=== PATIENT | female | born 1990 | race American Indian/Alaskan Native ===

== ENCOUNTER 2019-05-04 20:31 | Inpatient (IN) | payer OTHER ==
[2019-05-04] MEDS ORDERED: fentaNYL 100 MCG/2 ML INJ IV PRN (20:38)
[2019-05-04] MEDS ORDERED: PROMETHAZINE 25 MG TAB PO PRN (20:38)
[2019-05-04] MEDS ORDERED: TERBUTALINE 1 MG/1 ML INJ SUB-Q PRN (20:38)
[2019-05-04] MEDS ORDERED: NALOXONE 0.4 MG/1 ML INJ IV PRN (20:38)
[2019-05-04] MEDS ORDERED: TERBUTALINE 1 MG/1 ML INJ IVP PRN (20:38)
[2019-05-04] MEDS ORDERED: MINERAL OIL 30 ML ORAL LIQD PO PRN (20:38)
[2019-05-04] MEDS ORDERED: BUTORPHANOL 2 MG/1 ML INJ IV PRN (20:38)
[2019-05-04] MEDS ORDERED: AMPICILLIN/NS 2 GM/100 ML 2 GM/100 ML BAG IV ONE (20:38)
[2019-05-04] MEDS ORDERED: ONDANSETRON 4 MG/2 ML INJ IV PRN (20:38)
[2019-05-04] MEDS ORDERED: LIDOCAINE (2%) 20 MG/1 ML VIAL 20 ML MDV INFILTRATI ONE ×2 (20:38→22:55)
[2019-05-04] MEDS ORDERED: OXYTOCIN DRIP 30 UNITS/500 ML BAG IV SCH (21:00)
[2019-05-04] MEDS ORDERED: LACTATED RINGERS 1,000 ML IV SCH (21:00)
[2019-05-04 21:14] LABS: Hematocrit 34.3 % (30.3-42.9); Hemoglobin 11.1 gm/dl (10.1-14.3); Mean Corpuscular HGB Conc 32 % (30-34); Mean Corpuscular Volume 85 fl (79-97); Platelet Count 274 K/mm3 (140-440); Red Blood Count 4.03 M/mm3 (3.65-5.03)
--- NOTE | 2019-05-04 22:23 | History and Physical Report ---
History of Present Illness Date of examination: 05/04/19 Date of admission: 05/04/19 Chief complaint: Contractions History of present illness: Pt is a 28 yo at 37.0 weeks EGA who presents with regular uterine contractions. She denies current leaking fluid or vaginal bleeding. She has received care with [facility] since 15 weeks EGA, with gap in care from 23 and 29.5 weeks and from 31.5 to 37 weeks. Her course has been complicated by an elevated GCT without completion of 3 hr GTT. Her GBS status is unknown. Past History Past Medical History: other (Glucose intolerance) Past Surgical History: no surgical history Family/Genetic History: none Social history: no significant social history - Obstetrical History Expected Date of Delivery: 05/25/19 Actual Gestation: 37 Week(s) 0 Day(s) : 2 Para: 0 Hx # Term Pregnancies: 0 Spontaneous Abortions: 0 Induced : 1 Number of Living Children: 0 Medications and Allergies Allergies Allergy/AdvReac Type Severity Reaction Status Date / Time No Known Drug Allergies Allergy Unknown Verified 05/04/19 21:00 Home Medications Medication Instructions Recorded Confirmed Last Taken Type Vitamin 1 tab PO DAILY 05/04/19 05/04/19 05/04/19 08:00 History Active Meds: Active Medications Butorphanol Tartrate (Stadol) 2 mg IV Q2H PRN PRN Reason: Pain , Severe (7-10) Last Admin: 05/04/19 21:13 Dose: 2 mg Documented by: Ephedrine Sulfate (Ephedrine Sulfate) 10 mg IV Q2M PRN PRN Reason: Hypotension Fentanyl (Sublimaze) 100 mcg IV Q2H PRN PRN Reason: Labor Pain Oxytocin/Sodium Chloride (Pitocin/Ns 20 Unit/1000ml Drip) 20 units in 1,000 mls @ 125 mls/hr IV DIRECT CHAZ Oxytocin/Sodium Chloride (Pitocin/Ns 30 Unit/500ml) 30 units in 500 mls @ 1 mls/hr IV TITR CHAZ; Protocol Lactated Ringer's (Lactated Ringers) 1,000 mls @ 125 mls/hr IV DIRECT CHAZ Last Admin: 05/04/19 21:27 Dose: 125 mls/hr Documented by: Ampicillin Sodium (Ampicillin/Ns 1 Gm/50 Ml) 1 gm in 50 mls @ 100 mls/hr IV Q4HR CHAZ; Protocol Mineral Oil (Mineral Oil) 30 ml PO QHS PRN PRN Reason: Constipation Naloxone HCl (Naloxone) 0.1 mg IV Q2MIN PRN PRN Reason: Res Rate </= 8 or 02 SAT < 92% Ondansetron HCl (Zofran) 4 mg IV Q8H PRN PRN Reason: Nausea And Vomiting Promethazine HCl (Phenergan) 25 mg PO Q6H PRN PRN Reason: Nausea And Vomiting Terbutaline Sulfate (Brethine) 0.25 mg SUB-Q ONCE PRN PRN Reason: Hyperstimulation/Hypertonicity Terbutaline Sulfate (Brethine) 0.25 mg IVP ONCE PRN PRN Reason: Hyperstimulation/Hypertonicity Review of Systems All systems: negative Genitourinary: contractions, no vaginal bleeding, no vaginal discharge, no leakage of fluid - Vital Signs Vital signs: Vital Signs Resp 18 05/04/19 21:13 Temp Pulse Resp BP Pulse Ox 75 18 111/59 05/04/19 21:36 05/04/19 21:36 05/04/19 21:36 - Physical Exam Abdomen: Positive: soft Genitourinary (Female): Positive: normal external genitalia, normal perenium Vagina: Positive: normal moisture Uterus: Positive: enlarged (gravid) Extremities: Positive: normal - Obstetrical FHR: category 2 (variable decelerations) Uterine Contraction Monitor Mode: External Cervical Dilatation: 7 Cervical Effacement Percentage: 80 station: -3 Uterine Contraction Frequency (min): 2 Uterine Contraction Duration: 50 Uterine Contraction Pattern: Regular Results Result Diagrams: 05/04/19 20:50 Abnormal lab results 05/04/19 Range/Units 20:50 WBC 17.0 H (4.5-11.0) K/mm3 All other labs normal. Assessment and Plan 28 yo at 37.0 weeks EGA Active labor GBS unknown Admit to L&D for labor Initiate Ampicillin prophylaxis Augment as needed Pain relief as requested Anticipate
[2019-05-04] MEDS ORDERED: ePHEDrine SULFATE 50 MG/1 ML INJ IV PRN (22:39)
[2019-05-04] MEDS ORDERED: NALOXONE 2 MG/2 ML INJ IV PRN (22:39)
--- NOTE | 2019-05-04 22:39 | Anesthesia Consultation ---
Anesthesia Consult and Med Hx Date of service: 05/04/19 - Airway Anesthetic Teeth Evaluation: Good ROM Head & Neck: Adequate Mental/Hyoid Distance: Adequate Mallampati Class: Class II Intubation Access Assessment: Good - Pulmonary Exam CTA: Yes - Cardiac Exam Cardiac Exam: RRR - Pre-Operative Health Status ASA Pre-Surgery Classification: ASA2, Emergency Proposed Anesthetic Plan: Epidural - Pulmonary Hx Asthma: No COPD: No Hx Pneumonia: No - Cardiovascular System Hx Hypertension: No - Central Nervous System Hx Seizures: No Hx Psychiatric Problems: No - Endocrine Hx Renal Disease: No Hx End Stage Renal Disease: No Hx Hypothyroidism: No Hx Hyperthyroidism: No - Hematic Hx Anemia: No Hx Sickle Cell Disease: No - Other Systems Hx Alcohol Use: No
[2019-05-04] MEDS: ePHEDrine SULFATE 50 MG/1 ML INJ IV PRN ×2 (22:50→23:30)
[2019-05-04] MEDS ORDERED: OXYTOCIN 10 UNIT/1 ML INJ ONE (22:55)
[2019-05-04] MEDS ORDERED: fentaNYL-BUPIV 2 MCG/ML-0.125% 200 MCG/100 ML BAG EPIDURAL SCH (23:00)
[2019-05-05] MEDS ORDERED: PROMETHAZINE 25 MG RECT SUPP PR PRN (00:27)
[2019-05-05] MEDS ORDERED: PROMETHAZINE 25 MG TAB PO PRN (00:27)
[2019-05-05] MEDS ORDERED: diphenhydrAMINE 25 MG CAP PO PRN (00:27)
[2019-05-05] MEDS ORDERED: WITCH HAZEL/ GLYCERIN PAD TP PRN (00:27)
[2019-05-05] MEDS ORDERED: LANOLIN/ZINC/DIMETHICONE (LANSINOH) 7 GM TP PRN (00:27)
[2019-05-05] MEDS ORDERED: MAGNESIUM HYDROXIDE (MOM) ORAL LIQD UDC PO PRN (00:27)
[2019-05-05] MEDS ORDERED: ACETAMINOPHEN 325 MG TAB PO PRN (00:27)
[2019-05-05] MEDS ORDERED: ONDANSETRON 4 MG/2 ML INJ IV PRN (00:27)
[2019-05-05] MEDS ORDERED: AMPICILLIN/NS 1 GM/50 ML 1 GM/50 ML BAG IV SCH (00:40)
--- NOTE | 2019-05-05 00:46 | Procedure Note ---
OB Delivery Note - Delivery Date of Delivery: 05/05/19 Surgeon: OSCAR ARCHULETA ([facility]) Estimated blood loss: 200cc - Vaginal Delivery presentation: vertex Delivery position: OA Intrapartum events: mult.variable deceleratio Delivery induction: none Delivery monitor: external FHT, external uterine Route of delivery: Delivery placenta: spontaneous Delivery cord: 3 umbilical vessels Episiotomy: none Delivery laceration: vaginal side wall (right, hemostatic) Anesthesia: epidural Delivery comments: Pt noted to be c/c/+2. Excellent maternal effort progressed to of viable female infant. Head delivered OA, restituted LOT. Shoulders followed easily. Infant to maternal abdomen, bulb suctioned and stimulated, gasping, cord clamped and cut, to warmer, evaluated by peds. [place] placenta followed spontaneously and intact. Vagina and perineum explored. Right labial and periurethral abrasion noted, hemostatic. Fundus firm. Pitocin infusing. - A Infant Gender: Female
[2019-05-05] MEDS: OXYTOCIN 20 UNIT/1000ML DRIP 20 UNITS/1,000 ML BAG IV SCH ×2 (01:10→01:26)
[2019-05-05] MEDS ORDERED: OXYTOCIN 10 UNIT/1 ML INJ IM ONE (05:14)
[2019-05-05] MEDS: IBUPROFEN 600 MG TAB PO SCH ×3 (05:31→17:39)
[2019-05-05] MEDS: FERROUS SULFATE 325 MG TAB PO SCH (09:33)
[2019-05-05 13:01] LABS: Hematocrit 27.9 % (30.3-42.9); Hemoglobin 9.2 gm/dl (10.1-14.3)
--- NOTE | 2019-05-05 14:22 | Post Anesthesia Evaluation ---
- Post Anesthesia Evaluation Patient Participated: Yes Airway Patent: Yes Stable Respiratory Function: Yes Nausea/Vomiting: No Temp > 96.8F: Yes Pain Manageable: Yes Adequeate Hydration: Yes Anesthesia Complications: No Block Receding Appropriately: Yes Patient on Ventilator: No
[2019-05-06] MEDS: IBUPROFEN 600 MG TAB PO SCH ×4 (00:21→17:44)
[2019-05-06] MEDS: FERROUS SULFATE 325 MG TAB PO SCH ×2 (00:21→09:53)
[2019-05-06] MEDS ORDERED: TETANUS,DIPH,PERTUSS(ACELL) VACCINE 0.5 ML SYRINGE IM ONE (06:00)
--- NOTE | 2019-05-06 08:38 | Progress Note ---
Assessment and Plan - Patient Problems (1) (normal spontaneous vaginal delivery) Current Visit: Yes Status: Acute Plan to address problem: patient doing well discharge home Subjective - Subjective Date of service: 05/06/19 Interval history: Patient doing well. Lochia is decreased. Tolerating regular diet Patient reports: appetite normal, voiding normally, pain well controlled [place]: doing well Objective - Vital Signs Latest vital signs: Vital Signs Temp Pulse Resp BP BP Pulse Ox 05/06/19 08:07 97.4 F L 70 18 106/73 05/06/19 06:00 18 05/06/19 01:21 18 05/06/19 00:21 18 05/06/19 00:15 98.5 F 96 H 16 111/56 99 05/05/19 21:01 98.3 F 70 16 98/55 100 05/05/19 12:00 98.4 F 61 20 104/62 100 05/05/19 09:52 98.3 F 75 20 98/53 98 Intake and Output 05/05/19 05/06/19 05/06/19 22:59 06:59 14:59 Intake Total 240 600 480 Balance 240 600 480 Intake: Oral 240 480 Intake, Free Water 240 360 Other: Total, Intake Amount 240 480 # Voids Void 1 1 - Exam Uterus: Present: normal, firm - Labs Labs: Abnormal lab results 05/05/19 Range/Units 12:40 Hgb 9.2 L (10.1-14.3) gm/dl Hct 27.9 L D (30.3-42.9) %
--- NOTE | 2019-05-06 08:40 | Discharge Summary ---
Providers - Providers Date of Admission: 05/04/19 20:39 Date of discharge: 05/06/19 Attending physician: MARCE JEAN BAPTISTE MD Primary care physician: MARCE JEAN BAPTISTE MD Hospitalization Reason for admission: rupture of membranes Delivery: Discharge diagnosis: IUP at term delivered baby: female Hospital course: Patient admitted and augmented secondary to ruptured membranes. Patient had a . uncomplicated Condition at discharge: Good Disposition: DC-01 TO HOME OR SELFCARE - Discharge Diagnoses (1) (normal spontaneous vaginal delivery) Status: Acute Plan - Discharge Medications Prescriptions: Ibuprofen [Motrin] 800 mg PO Q8HR PRN #60 tablet PRN Reason: Pain, Mild (1-3) HYDROcodone/APAP 5-325 [Anchor 5/325] 1 each PO Q6HR PRN #20 tablet PRN Reason: Pain - Provider Discharge Summary Activity: no sex for 6 weeks, no heavy lifting 4 weeks, no strenuous exercise Diet: routine Instructions: routine Additional instructions: [] Smoking cessation referral if applicable(refer to patient education folder for contact #) [] Refer to [facility] Booklet Call your doctor immediately for: * Fever > 100.5 * Heavy vaginal bleeding ( >1 pad per hour) * Severe persistent headache * Shortness of breath * Reddened, hot, painful area to leg or breast * schedule followup in 4 weeks - Follow up plan
[2019-05-07] MEDS: IBUPROFEN 600 MG TAB PO SCH ×2 (00:50→06:07)
[2019-05-07] MEDS: FERROUS SULFATE 325 MG TAB PO SCH (00:50)
[2019-05-07 17:53] VITALS: BP 110/67
== END 2019-05-07 16:30 | disposition home or self-care (01) | DRG 775 ==
LOC: TRG 20:31 → LD 20:39 → OB 05-05 04:03
PROVIDERS: ADMIT Obstetrics & Gynecology; ATTEND Obstetrics & Gynecology
PROC: 10E0XZZ Delivery of Products of Conception, External Approach (ICD-10-PCS; principal; 2019-05-05)
PROC: 3E0R3BZ Introduction of Anesthetic Agent into Spinal Canal, Percutaneous Approach (ICD-10-PCS; 2019-05-05)
PROC: 00HU33Z Insertion of Infusion Device into Spinal Canal, Percutaneous Approach (ICD-10-PCS; 2019-05-05)
PROC: 0UQGXZZ Repair Vagina, External Approach (ICD-10-PCS; 2019-05-05)
PROC: 3E0234Z Introduction of Serum, Toxoid and Vaccine into Muscle, Percutaneous Approach (ICD-10-PCS; 2019-05-06)
DX: O76 Abnormality in fetal heart rate and rhythm complicating labor and delivery (principal); Z37.0 Single live birth; Z3A.37 37 weeks gestation of pregnancy; Z23 Encounter for immunization; O71.4 Obstetric high vaginal laceration alone
CPT/HCPCS: 36415; 85014; 85018; 85027; 86850; 86900; 86901; G0378; J0290; J0595; J2590; J7120